=== PATIENT | male | born 1985 | race American Indian/Alaskan Native ===

== ENCOUNTER 2016-06-02 18:06 | Emergency (ER) | payer OTHER ==
[2016-06-02 18:31] VITALS: BP 143/95
== END 2016-06-02 20:20 | disposition left against medical advice (07) ==
LOC: ED 18:06
DX: M79.641 Pain in right hand (principal); M79.644 Pain in right finger(s); V49.9XXA Car occupant (driver) (passenger) injured in unspecified traffic accident, initial encounter; Y92.488 Other paved roadways as the place of occurrence of the external cause; Y93.89 Activity, other specified; Y99.8 Other external cause status; Z53.21 Procedure and treatment not carried out due to patient leaving prior to being seen by health care provider